=== PATIENT | female | born 1955 | race Caucasian/White ===

== ENCOUNTER 2022-02-19 00:31 | Day surgery (SDC) | payer MEDICARE, SELFPAY ==
[2022-02-05 12:24] VITALS: BMI 37.0
[2022-02-19 11:11] VITALS: BP 160/69; PULSE 95; RESP 18; TEMP 36.4; O2SAT 99
[2022-02-19] MEDS: LACTATED RINGERS 1,000 ML 150 ML IV CONT (11:22)
--- NOTE | 2022-02-19 11:28 | P.PNAN_ITS ---
Anes - Initial Pre Proc Eval Procedure: Operation Date: 02/19/22 12:30 Proposed Procedures p Screening Colonoscopy - Lloyd Zarate MD Date/Time: 02/19/22 11:28 Surgeon: Lloyd Zarate MD Pre Op Diagnosis: neoplasm screening Patient Data Age: 66 Gender: F Height: 1.75 m Weight: 113.6 kg Last Vital Signs Temp 97.6 F 02/19/22 11:11 Pulse 95 02/19/22 11:11 Resp 18 02/19/22 11:11 BP 160/69 H 02/19/22 11:11 Pulse Ox 99 02/19/22 11:11 O2 Del Method Room Air 02/19/22 11:11 Allergies Allergy/AdvReac Type Severity Reaction Status Date / Time nitrofurantoin Allergy Unknown Other Verified 02/19/22 11:15 DANICRAN Allergy Severe Swelling Uncoded 02/19/22 11:15 Home Medications Medication Instructions Recorded Confirmed Type ascorbic acid (vitamin C) 500 mg 500 mg PO DAILY 02/05/22 02/19/22 History tablet glucosamine sulf dipot 1 cap PO DAILY 02/05/22 02/19/22 History chlr,msm,chond 550 mg-C 30 mg-roxie 1 mg capsule (Glucosamine Chondroitin) levothyroxine 125 mcg tablet 125 mcg PO DAILY 02/05/22 02/19/22 History lisinopril 20 1 tablet PO DAILY 02/05/22 02/19/22 History mg-hydrochlorothiazide 12.5 mg tablet multivitamin with minerals-folic 1 tablet PO DAILY 02/05/22 02/19/22 History acid 0.4 mg tablet omeprazole 20 mg tablet,delayed 20 mg PO DAILY 02/05/22 02/19/22 History release vitamin E 400 unit tablet 400 unit PO DAILY daily 02/05/22 02/19/22 History Patient hx anesthesia problems: none Family hx anesthesia problems: none Results Review: All pre-operative results and documents have been reviewed as part of the pre- operative evaluation. [facility] Social History Social History Smoking status: Never smoker Alcohol intake: never Substance use type: does not use Living arrangements: with family Spiritual care concerns: No Anes - Eval Final PreProcedure Day of Procedure 02/19/22 11:28 Patient weight: obese Heart: regular rate and rhythm Lungs: clear to auscultation Airway: Mallampati scale class II Neurological: alert and oriented Last oral intake: >/= 8 hours ASA classification: III Emergent: no Anesthetic plan: proceed Anesthesia type and monitoring: general GIVS and standard monitoring Results Review: All pre-operative results and documents have been reviewed as part of the pre- operative evaluation. Informed Consent: The patient's anesthetic plan and its attendant risks and benefits were discussed with the patient/family/POA. Questions were solicited and answers provided to the satisfaction of the patient/family/POA.
--- NOTE | 2022-02-19 11:33 | PM.HPGS ---
History of Present Illness History of Present Illness Consent: Risks, benefits, and alternatives have been discussed and questions answered. Patient agrees to proceed with procedure. Chief complaint: neoplasm screening Narrative: Jovana Merchant is a 66 year old female Presents for neoplasia screening colonoscopy. Patient's current weight appetite and bowel movements are normal. Patient denies abdominal pain. She has had no bleeding. Family history noncontributory. Patient's last colonoscopy 2009 was unremarkable. Review of Systems Review of Systems: Review of systems noncontributory. [facility] Social History Social History Smoking status: Never smoker Alcohol intake: never Substance use type: does not use Living arrangements: with family Spiritual care concerns: No Meds Home Medications and Allergies Home Medications Medication Instructions Recorded Confirmed Type ascorbic acid (vitamin C) 500 mg 500 mg PO DAILY 02/05/22 02/19/22 History tablet glucosamine sulf dipot 1 cap PO DAILY 02/05/22 02/19/22 History chlr,msm,chond 550 mg-C 30 mg-roxie 1 mg capsule (Glucosamine Chondroitin) levothyroxine 125 mcg tablet 125 mcg PO DAILY 02/05/22 02/19/22 History lisinopril 20 1 tablet PO DAILY 02/05/22 02/19/22 History mg-hydrochlorothiazide 12.5 mg tablet multivitamin with minerals-folic 1 tablet PO DAILY 02/05/22 02/19/22 History acid 0.4 mg tablet omeprazole 20 mg tablet,delayed 20 mg PO DAILY 02/05/22 02/19/22 History release vitamin E 400 unit tablet 400 unit PO DAILY daily 02/05/22 02/19/22 History Allergies Allergy/AdvReac Type Severity Reaction Status Date / Time nitrofurantoin Allergy Unknown Other Verified 02/19/22 11:15 DANICRAN Allergy Severe Swelling Uncoded 02/19/22 11:15 Vital Signs Vital Signs - 24 hr 02/19/22 11:11 Temperature 97.6 F Pulse Rate 95 Respiratory Rate 18 Blood Pressure 160/69 H Pulse Oximetry 99 Oxygen Delivery Room Air Exam Narrative: Physical exam reveals patient be alert. Vital signs stable. HEENT exam is unremarkable. Patient is anicteric. Lungs are clear to auscultation and percussion. Heart is without murmur or extra sounds. Abdomen bowel sounds present soft nontender with no organomegaly. Digital external rectal exam is normal. Assessment and Plan Assessment and plan (1) Encounter for screening colonoscopy: Code(s): Z12.11 - Encounter for screening for malignant neoplasm of colon Status: Acute Assessment and Plan: Patient presents for screening colonoscopy. She appears to be at average risk for colon polyps.
[2022-02-19 13:00] VITALS: BP 155/85; PULSE 90; RESP 22; O2SAT 100
[2022-02-19 13:10] VITALS: BP 172/90; PULSE 94; RESP 20; O2SAT 97
[2022-02-19 13:20] VITALS: BP 138/73; PULSE 85; RESP 18; O2SAT 97
== END 2022-02-19 13:29 | disposition home or self-care (01) ==
PROVIDERS: Visit Provider Internal Medicine Gastroenterology
PROC: 0DJD8ZZ Inspection of Lower Intestinal Tract, Via Natural or Artificial Opening Endoscopic (ICD-10-PCS; CPT 45378; principal; 2022-02-19 12:30)
DX: Z12.11 Encounter for screening for malignant neoplasm of colon (principal); K64.8 Other hemorrhoids; E66.9 Obesity, unspecified; Z68.37 Body mass index [BMI] 37.0-37.9, adult
CPT/HCPCS: G0121; J2704; J7120

== ENCOUNTER 2023-08-17 15:35 | Inpatient (IN) | payer MEDICARE, SELFPAY ==
--- NOTE | ~2023-08-17 | US_ITS ---
EXAMINATION: US right upper quadrant DATE: 08/18/2023 11:05 INDICATION: Right upper quadrant abdominal pain. TECHNIQUE: Multiple grayscale and Doppler ultrasound images of the abdomen were obtained. COMPARISON: CT abdomen and pelvis 08/17/2023 FINDINGS: The pancreas is hypoechoic, consistent with acute pancreatitis. There is diffuse hepatic st eatosis. There is normal flow in main portal vein. The gallbladder is normal in size. No gallstones o r gallbladder wall thickening. There was no sonographic Burgos's sign. The common duct is normal and measures 3 mm. There is a small volume of perihepatic ascites. IMPRESSION: 1. Acute pancreatitis. 2. Small volume of perihepatic ascites. 3. Diffuse hepatic steatosis. Reviewed, dictated and finalized at location A.
--- NOTE | ~2023-08-17 | MR_ITS ---
EXAMINATION: MR MRCP wo/w con/w 3D wo ind DATE: 08/18/2023 12:12 INDICATION: Abdominal pain. TECHNIQUE: Magnetic resonance imaging (MRI) of the abdomen was performed without intravenous contrast . Sequences included coronal T2-weighted FS FSE, coronal T2-weighted FSE, axial T1-weighted LAVA, cor onal FS FIESTA, axial dual-echo T1-weighted SPGR, coronal lava-FLEX, sagittal T2-weighted FSE, axial T2-weighted FSE, and axial DWI. Thick-slab T2-weighted FSE images were obtained for magnetic resonanc e cholangiopancreatography (MRCP). Maximum intensity projection 3-D reconstructions of the volumetric data were created by the technologist. Postcontrast sequences included coronal LAVA-flex and time co urse of axial T1-weighted LAVA. COMPARISON: CT abdomen and pelvis 08/17/2023 FINDINGS: ABDOMEN MRI: There is diffuse hepatic steatosis. The gallbladder and spleen are normal. There is hypo enhancement in the body of the pancreas. There is widespread fat stranding in the peritoneum and retr operitoneum centered at the pancreas. There is a small volume of ascites. The adrenal glands and left kidney are normal. There are cysts in right kidney measuring up to 10 mm. There are no dilated loops of bowel. ABDOMEN MRCP: The common duct is normal and measures 4 mm. No choledocholithiasis. IMPRESSION: 1. Acute necrotic pancreatitis. 2. Small volume of ascites. 3. Diffuse hepatic steatosis. Reviewed, dictated and finalized at location A.
--- NOTE | ~2023-08-17 | XR_ITS ---
EXAMINATION: XR chest 1V portable Exam Date/Time: 08/17/2023 18:45 CDT HISTORY: abd pain WITH NAUSEA AND VOMITTING X 1 DAY Comparison: None. RESULT: Lines, tubes, and devices: None. Lungs and pleura: Clear. Cardiomediastinal silhouette: Unremarkable. Other: No acute osseous or upper abdominal finding. IMPRESSION: No acute cardiopulmonary process. Reviewed, dictated and finalized at location K.
--- NOTE | ~2023-08-17 | CT_ITS ---
EXAMINATION: CT abdomen pelvis w con DATE: 08/17/2023 17:50 INDICATION: abdominal pain TECHNIQUE: Computed tomography (CT) of the abdomen and pelvis was performed with 100 mL Omnipaque-350 intravenous contrast. Automated exposure control and iterative reconstruction technique were employe d. The dose-length product was 1534.65 mGy-cm. COMPARISON: None. FINDINGS: Lower thorax: Unremarkable Liver: Normal. Biliary/Gallbladder: Gallbladder is normal. No bile duct dilation. Pancreas: Moderate peripancreatic stranding and fluid. Fluid extends into the kushal hepatis and mid a bdominal mesentery. Ill-defined area of hypoenhancement in the pancreatic body. Spleen: Normal. Adrenals:No mass. Kidneys: No suspicious mass, obstructing stone, or hydronephrosis. Multiple simple right renal cysts. GI tract: Mild distal esophageal and gastric wall edema. Inflammatory fluid surrounding the duodenal C-loop, presumably reactive. No small or large bowel dilation. Normal appendix. Diverticulosis withou t diverticulitis. Mesentery/Peritoneum: No ascites, mass, or free air. Retroperitoneum: No mass. Atherosclerotic abdominal aortic and/or arterial calcifications. Pelvis: Normal urinary bladder. Absent uterus.. Soft Tissues: Soft tissues and body wall unremarkable. Bones: No acute osseous finding. IMPRESSION: Acute pancreatitis. Focal hypoenhancement in the pancreatic body may represent edema or necrosis, att ention on follow-up exams. No organized peripancreatic fluid collection. Reviewed, dictated and finalized at location K. IMPRESSION: Acute pancreatitis. Focal hypoenhancement in the pancreatic body may represent edema or necrosis, attention on follow-up exams. No organized peripancreatic fl uid collection.
[2023-08-17 16:09] VITALS: BP 154/75; PULSE 68; RESP 18; TEMP 36.6; O2SAT 100
--- NOTE | 2023-08-17 17:03 | ED.GENADULT ---
HPI - General Adult General Chief complaint: Abdominal Pain Stated complaint: UPPER ABD PAIN Time Seen by Provider: 08/17/23 17:03 Focused HPI: Jovana Merchant is a 67 y/o female who presents with reports of having sudden onset of left upper abdominal pain that started today at 1430, she has been vomiting and dry heaving ever since. She denies any changes with bowel movements / urine GENERAL: no acute distress. HEAD: Normocephalic, atraumatic. CHEST: Clear to auscultation. ?No respiratory distress. HEART: Regular rate and rhythm.? NEURO: ?Alert and oriented x3. Patient screened in triage and initial orders placed.? ?Additional care and disposition to be based upon?diagnostic testing and treatment. Related Data Home Medications Medication Instructions Recorded Confirmed levothyroxine 125 mcg tablet 125 mcg PO DAILY 02/05/22 08/17/23 lisinopril 20 1 tablet PO DAILY 02/05/22 08/17/23 mg-hydrochlorothiazide 12.5 mg tablet cholecalciferol (vitamin D3) 25 1,000 unit PO DAILY 08/17/23 08/17/23 mcg (1,000 unit) capsule Allergies Allergy/AdvReac Type Severity Reaction Status Date / Time DANICRAN Allergy Severe Swelling Uncoded 02/19/22 11:15 [facility] Past Medical History Medical History (Updated 08/18/23 @ 09:32 by Luann Pritchett APRN) Essential hypertension Hypothyroidism Internal hemorrhoids Morbid obesity Obstructive sleep apnea Intolerant to CPAP Varicose vein of leg Vitamin D deficiency Surgical History Surgical History (Updated 08/18/23 @ 00:50 by Tawnya Arroyo DO) History of colonoscopy Noting complicated internal hemorrhoids. 02/2022 History of hysterectomy (~1998) History of primary section (~1979) History of tonsillectomy (~1970) History of vein stripping (~2006) Left leg Status post cataract extraction of both eyes with insertion of intraocular lens (~2014) Family History Family History (Updated 08/18/23 @ 00:52 by Tawnya Arroyo DO) Mother Lung cancer, Onset Age: 55 Smoker Father Alcoholism Acute myocardial infarction, Onset Age: 62 Social History Social History (Updated 08/18/23 @ 00:53 by Tawnya Arroyo DO) Social History: She lives at home with her of 49 years. 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 She raised a daughter and a son. She is a lifelong nonsmoker and drinks absolutely no alcohol and does not use illicit substances. Code status: Full code Surrogate decision maker: Smoking status: Never smoker Alcohol intake: never Substance use: never Substance use type: does not use Do You Feel Safe in your Home?: Yes Lack of Transportation: No Lack of Food: Never True Current Housing: I Have Housing Concerned About Future Housing: No Difficulty Paying Gas/Electric Bills: No Difficulty Paying for Meds: No Currently Unemployed: No Education: High School Diploma/GED Difficulty w/ Childcare or Family Care: No Living arrangements: with family Spiritual care concerns: No Course Vital Signs Vital signs: Vital Signs Temperature 36.6 C 08/17/23 16:09 Pulse Rate 68 08/17/23 16:09 Respiratory Rate 18 08/17/23 16:09 Blood Pressure 154/75 H 08/17/23 16:09 Pulse Oximetry 100 08/17/23 16:09 Oxygen Delivery Room Air 08/17/23 16:09 Temperature 37.1 C 08/18/23 20:05 Pulse Rate 97 08/18/23 20:05 Respiratory Rate 16 08/18/23 20:05 Blood Pressure 139/61 08/18/23 20:05 Pulse Oximetry 93 08/18/23 20:05 Oxygen Delivery Room Air 08/18/23 20:00 Medical Decision Making Vital Signs Vital Signs: Vital Signs Temperature 36.6 C 08/17/23 16:09 Pulse Rate 68 08/17/23 16:09 Respiratory Rate 18 08/17/23 16:09 Blood Pressure 154/75 H 08/17/23 16:09 Pulse Oximetry 100 08/17/23 16:09 Oxygen Delivery Room Air 08/17/23 16:09 Temperature 37.1 C 08/18/23 20:05 Pulse Rate 97 08/18/23 20:05 Respiratory
[2023-08-17] MEDS: ONDANSETRON INJ 4 MG/2 ML VIAL IV PUSH ×3 (17:23→22:59)
[2023-08-17] MEDS: KETOROLAC 30 MG/ML VIAL (*BKC) IV PUSH (17:24)
[2023-08-17] MEDS: DICYCLOMINE HCL INJ 20 MG/2 ML VIAL IM (17:24)
[2023-08-17] MEDS: FAMOTIDINE 20 MG/2 ML VIAL IV PUSH (17:24)
[2023-08-17 17:48] LABS: Hematocrit 45.4 % (37.0-47.0); Hemoglobin 15.3 g/dL (12.0-15.0); Mean Corpuscular HGB Conc 33.7 g/dl (32-36); Mean Platelet Volume 11.1 fl (7.4-10.4); Platelet Count Result 217 k/mm3 (150-375); Red Blood Count 4.78 M/mm3 (4.2-5.4); Red Cell Distribution Width 15.2 % (11.5-14.5); White Blood Count 30.2 K/mm3 (4.5-10.0)
[2023-08-17 17:57] LABS: Lactic Acid Reflex 3.2 mmol/L (0.7-2.0)
[2023-08-17] MEDS: LACTATED RINGERS 1,000 ML 999 ML IV CONT ×4 (17:58→21:55)
[2023-08-17 17:59] LABS: Partial Thromboplastin Time 21.4 Seconds (22.3-36.8); Prothrombin Time 13.8 Seconds (11.1-14.7)
[2023-08-17 18:09] LABS: Troponin I < 0.012 ng/mL (0.000-0.034)
[2023-08-17 18:11] LABS: Band Neutrophils Percent 5 % (0-6); Lymphocytes Absolute Manual 3.32 K/mm3 (1.1-4.5); Lymphocytes Percent Manual 11 % (18-44); Monocytes Absolute Manual 1.81 K/mm3 (0.1-0.90); Monocytes Percent Manual 6 % (3-9); Neutrophils Absolute Manual 25.06 K/mm3 (1.7-7.2); Neutrophils Percent Manual 78 % (46-73); Platelet Estimate Adequate (Adequate); Total Cells Counted 100
[2023-08-17 18:12] LABS: Anisocytosis 1+; Ovalocytes 1+; Schistocytes None Seen
--- NOTE | 2023-08-17 18:24 | ED.ABDPAIN ---
HPI - Abdominal Pain General Chief Complaint: Abdominal Pain Stated Complaint: UPPER ABD PAIN Time Seen by Provider: 08/17/23 17:03 History of Present Illness HPI narrative: 67-year-old female w/ a hx of HTN presents via EMS with her daughter and at bedside for evaluation for sudden onset abdominal pain that started around 2:30 p.m. this afternoon. 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 She is pointing to her upper quadrants when I ask her where her pain is. She denies known fever, chest pain. Endorses some shortness of breath which she believes is secondary to retching. She denies dysuria, hematuria, diarrhea. Prior abdominal surgeries include a Caesarean section and partial hysterectomy. Last bowel movement was this morning and normal. No hematemesis or coffee-ground emesis. States she does not use drugs or alcohol. Denies use of Mounjaro and Ozempic. Related Data Home Medications Medication Instructions Recorded Confirmed levothyroxine 125 mcg tablet 125 mcg PO DAILY 02/05/22 08/17/23 lisinopril 20 1 tablet PO DAILY 02/05/22 08/17/23 mg-hydrochlorothiazide 12.5 mg tablet cholecalciferol (vitamin D3) 25 1,000 unit PO DAILY 08/17/23 08/17/23 mcg (1,000 unit) capsule Allergies Allergy/AdvReac Type Severity Reaction Status Date / Time CEE Allergy Severe Swelling Uncoded 02/19/22 11:15 Review of Systems Review of Systems: CONSTITUTIONAL: Denies fever, chills, or sweats. EYES: Denies visual changes, redness, or discharge. ENT: Denies rhinorrhea, congestion, sore throat, or otalgia. CARDIOVASCULAR: Denies chest pain, palpitations, or edema. RESPIRATORY: See HPI GASTROINTESTINAL: See HPI GENITOURINARY: Denies dysuria or hematuria. SKIN: Denies rash or itching. MUSCULOSKELETAL: Denies back pain, joint pain, or myalgia. NEUROLOGIC: Denies headache, numbness, or weakness. PSYCHIATRIC: Denies anxiety or depression. [facility] Family History Family History (Updated 08/17/23 @ 23:07 by Elena Marie RN) Mother Lung cancer Father Cardiac arrest Alcoholism Social History Social History (Reviewed 08/17/23 @ 18:29 by MEGAN Lynn Smoking status: Never smoker Alcohol intake: never Substance use: never Substance use type: does not use Do You Feel Safe in your Home?: Yes Lack of Transportation: No Lack of Food: Never True Current Housing: I Have Housing Concerned About Future Housing: No Difficulty Paying Gas/Electric Bills: No Difficulty Paying for Meds: No Currently Unemployed: No Education: High School Diploma/GED Difficulty w/ Childcare or Family Care: No Living arrangements: with family Spiritual care concerns: No Exam Narrative: GENERAL: Ill-appearing, resting on exam HEAD: Normocephalic, atraumatic. EYES: PERRLA and EOMI. ENT: Nares clear, no rhinorrhea or epistaxis. Mucous membranes moist. NECK: Supple. CHEST: Clear to auscultation. No respiratory distress. HEART: Regular rate and rhythm. No murmur heard. Normal peripheral pulses. ABDOMEN: Abdomen soft with quiet bowel sounds. Tenderness throughout the abdomen with associated guarding, specifically over the left and right upper quadrant. Positive Burgos sign. No rebound or rigidity. No CVA tenderness. EXTREMITIES: Normal range of motion. No edema. SKIN: Warm, dry, no rash. NEURO: No focal deficits. Alert and oriented x3 Course Vital Signs Vital signs: Vital Signs Temperature 98 F 08/17/23 16:09 Pulse Rate 68 08/17/23 16:09 Respiratory Rate 18 08/17/23 16:09 Blood Pressure 154/75 H 08/17/23 16:09 Pulse Oximetry 100 08/17/23 16:09 Oxygen Delivery Room Air 08/17/23 16:09 Temperature 98.1 F 08/17/23 23:17 Pulse Rate 76 08/18/23 00:00 Respiratory Rate 20 08/17/23 23:17 Blood Pressure 163/65 H 08/17/23 23:17 Pulse Oximetry 93
[2023-08-17 18:27] LABS: Alanine Aminotransferase 34 U/L (6-35); Albumin Level 4.9 g/dL (3.5-5.1); Alkaline Phosphatase 92 U/L (38-126); Anion Gap 14 mmol/L (4-12); Aspartate Amino Transferase 44 U/L (14-36); Bilirubin,Total 0.6 mg/dL (0.2-1.3); Blood Urea Nitrogen 35 mg/dL (7-17); Carbon Dioxide 19 mmol/L (22-30); Chloride 106 mmol/L (98-107); Estimated CRCL calculation 71 ml/min; Estimated Glomerular Filt Rate 55; Glucose 225 mg/dL (65-110); Sodium 139 mmol/L (137-145)
[2023-08-17] MEDS: MORPHINE SULFATE (*CRX) 4 MG/ML INJ IV PUSH (18:27)
[2023-08-17 18:30] VITALS: BP 131/65; PULSE 69; RESP 13; O2SAT 98
[2023-08-17 18:59] LABS: CRP < 0.5 mg/dL (<1.0)
[2023-08-17 19:09] LABS: Erythrocyte Sedimentation Rate 11 mm/hr (0-20)
--- NOTE | 2023-08-17 20:07 | PC.NURSE ---
forth person attempting to get second set of blood cultures at this time, will start antibiotic treatment once second set of blood cultures are sent to the lab.
[2023-08-17] MEDS: HYDROmorphone HCL INJ (*CRX) 1 MG/ML SYR 0.5 MG IV PUSH (20:31)
[2023-08-17] MEDS: PROMETHAZINE HCL 25 MG/ML AMPUL IM (20:42)
[2023-08-17 20:45] LABS: Reflex Lactic Acid Yes or No Add Lactic
[2023-08-17] MEDS: HYDROmorphone HCL INJ (*CRX) 1 MG/ML SYR IV PUSH ×2 (21:41→23:51)
[2023-08-17] MEDS: CEFEPIME 2 GM/NS 50 ML 2 GM/50 ML BAG IVPB (21:49)
[2023-08-17] MEDS: metroNIDAZOLE 500 MG/ISO 100ML 500 MG/100 ML BAG 100 MG IVPB (22:06)
[2023-08-17 22:24] LABS: Lactic Acid 3.1 mmol/L (0.7-2.0)
[2023-08-17 22:25] LABS: Triglycerides 92 mg/dL (<150)
--- NOTE | 2023-08-17 23:03 | ADMGEN ---
This patient, Jovana Merchant, was admitted to Medical Room 349-01. Patient/family oriented to hospital policies and general routines including ID bracelet, bed and alarms, visiting hours, pain management, procedures, bathroom and other care routines, personal items, smoking policy, room service/diet, and visiting hours. Information on how to activate the Rapid Response Team has been discussed. Patient/Family are encouraged to report perceived risks to care and to ask questions if they do not understand what they are told or what they should do.
[2023-08-17 23:17] VITALS: BP 163/65; PULSE 69; RESP 20; TEMP 36.7; O2SAT 93
[2023-08-17 23:22] VITALS: PULSE 80
[2023-08-17 23:28] VITALS: BMI 41.2
[2023-08-17] MEDS: LACTATED RINGERS 1,000 ML 200 ML IV CONT (23:32)
[2023-08-18] VITALS (9 sets, daily range): BP systolic 139–166; BP diastolic 42–70; PULSE 76–118; RESP 16–18; TEMP 36.6–37.1; O2SAT 92–93
--- NOTE | 2023-08-18 00:29 | PM.IMHP ---
H&P: HPI History of Present Illness Date/Time: 08/17/23 21:40 Chief Complaint: Abdominal pain Narrative: 67-year-old female with past medical history of morbid obesity, untreated obstructive sleep apnea, essential hypertension, hypothyroidism and vitamin-D deficiency who presented to the ER due to sudden severe onset of epigastric abdominal pain at 14:30. The patient reports that she had a pork steak about 2-1/2 hours prior to onset of symptoms. Then symptoms started in the epigastric area and radiated around the left side of the abdomen into the back. The symptoms are associated with severe nausea. Pain is 10/10 in intensity. Pain was so intense that they called EMS and patient arrived to the ER around 17:00. The patient is screaming quite loudly when I went to evaluate her in the ER. She has been having significant dry heaves. She denies any chest pain. She only feels short of breath when she is retching. Her last bowel movement was this morning. She does not have a history of alcohol use. She denies any recent changes in medications. She does reported distant history approximately 10 years ago of gallbladder sludge. She has not had a cholecystectomy. She has had a hysterectomy without oophorectomy and 1 . Patient's pain was on relieved in the ER despite Toradol 30 mg and morphine 4 mg. She reports minimal improvement in pain with Dilaudid. The patient's daughter noted some swelling of the patient's ankles after patient was noted to have some bradycardia with vomiting in the ER but heart rate for the most part state above 40. Blood pressures in the ER varied between the 130 systolic and have to 200 systolic when she was in distress. But blood pressures did improve with treatment of pain and nausea. She had been in the ER but patient does not usually have lower extremity edema. She denies any calf pain or tenderness. Patient denies any known history of cardiac disease and troponin was negative in the ER. EKG was obtained in the ER but was not available for my review on the chart but telemetry was personally reviewed. CT of the abdomen pelvis in the ER demonstrated acute pancreatitis with focal enhancement in the pancreatic body may represent edema or necrosis without organized fluid collection and lipase correlated with acute pancreatitis at 29,000. Triglycerides were normal. With the patient's permission the patient's daughter provided the majority of the HPI. The patient also had a detailed binder with her entire medical history of bedside. Some information obtained from external medical records and ER provider.. Review of Systems Review of Systems: 12 systems were reviewed with pertinent positives and negatives per HPI. Except as documented in the HPI, all other systems were reviewed and are negative. [facility] Past Medical History Medical History (Updated 08/18/23 @ 01:03 by Tawnya Arroyo DO) Essential hypertension Hypothyroidism Internal hemorrhoids Morbid obesity Obstructive sleep apnea Intolerant to CPAP Varicose vein of leg Vitamin D deficiency Surgical History Surgical History (Updated 08/18/23 @ 00:50 by Tawnya Arroyo DO) History of colonoscopy Noting complicated internal hemorrhoids. 02/2022 History of hysterectomy (~1998) History of primary section (~1979) History of tonsillectomy (~1970) History of vein stripping (~2006) Left leg Status post cataract extraction of both eyes with insertion of intraocular lens (~2014) Family History Family History (Updated 08/18/23 @ 00:52 by Tawnya Arroyo DO) Mother Lung cancer, Onset Age: 55 Smoker Father Alcoholism Acute myocardial infarction, Onset Age: 62 Social History Social History (Updated 08/18/23 @ 00:53 by Tawnya Arroyo DO) Social History: She lives at home with her of 49 years. 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 She is a lifelong
[2023-08-18] MEDS: KETOROLAC 30 MG/ML VIAL (*BKC) IV PUSH ×4 (00:57→17:47)
[2023-08-18] MEDS: hydrALAZINE HCL 20 MG/ML VIAL 10 MG IV PUSH (01:07)
[2023-08-18] MEDS: PROMETHAZINE HCL 25 MG/ML AMPUL IM ×2 (01:07→05:33)
[2023-08-18 01:48] LABS: Add Urine Microscopic? YES; Appearance Urine Clear (Clear); Bacteria Urine 4+ /hpf; Bilirubin Urine Negative (Negative); Blood Urine Negative (Negative); Color Urine Yellow (Yellow); Glucose Urine UA Negative (Negative); Ketones Urine Trace mg/dL (Negative); Leukocyte Esterase Ur Negative LEU/UL (Negative); Need Manual Microscopic Reviewed; Nitrate Urine Positive (Negative); Non Pathogenic Casts 0-2; Protein Urine 1+ mg/dL (Negative); RBC Urine 0-2 /hpf (0-2); Specific Grav Ur 1.069 (1.001-1.035); Squamous Epithelial Cell Urine None Seen /hpf (Few); Urobilinogen Urine 0.2 mg/dL (<2.0); pH Urine 5.5 (5.0-9.0)
[2023-08-18] MEDS: HYDROmorphone HCL INJ (*CRX) 1 MG/ML SYR IV PUSH ×4 (02:32→20:10)
[2023-08-18] MEDS: LACTATED RINGERS 1,000 ML 200 ML IV CONT (04:28)
[2023-08-18] MEDS: CEFEPIME 2 GM/NS 50 ML 2 GM/50 ML BAG IVPB ×3 (04:28→21:00)
[2023-08-18] MEDS: ONDANSETRON INJ 4 MG/2 ML VIAL IV PUSH ×2 (04:32→09:52)
[2023-08-18] MEDS: LEVOTHYROXINE SODIUM INJ 100 MCG/5 ML VIAL 62.5 MCG IV PUSH (05:32)
[2023-08-18 05:33] LABS: Basophils Absolute Auto 0.1 K/mm3 (0.0-0.1); Basophils Percent Auto 0.3 % (0.2-1.2); Eosinophils Percent Auto 0.1 % (0-4.4); Hematocrit 43.8 % (37.0-47.0); Hemoglobin 14.2 g/dL (12.0-15.0); Immature Granulocyte Percent A 0.6 % (0-0.5); Lymphocytes Percent Auto 6.6 % (18.3-44.2); Mean Corpuscular HGB Conc 32.4 g/dl (32-36); Mean Corpuscular Hemoglobin 32.2 pg (26-34); Mean Corpuscular Volume 99.3 fl (80-100); Mean Platelet Volume 11.2 fl (7.4-10.4); Monocytes Absolute Auto 1.4 K/mm3 (0.1-0.6); Monocytes Percent Auto 7.8 % (2.6-8.5); Neutrophils Absolute Auto 15.4 K/mm3 (1.3-6.7); Neutrophils Percent Auto 84.6 % (45.5-73.1); Platelet Count Result 154 k/mm3 (150-375); Red Blood Count 4.41 M/mm3 (4.2-5.4); Red Cell Distribution Width 15.7 % (11.5-14.5); White Blood Count 18.2 K/mm3 (4.5-10.0)
[2023-08-18] MEDS: metroNIDAZOLE 500 MG/ISO 100ML 500 MG/100 ML BAG 100 MG IVPB ×3 (05:33→21:48)
[2023-08-18 05:47] LABS: Alanine Aminotransferase 28 U/L (6-35); Albumin Level 3.9 g/dL (3.5-5.1); Alkaline Phosphatase 69 U/L (38-126); Anion Gap 10 mmol/L (4-12); Aspartate Amino Transferase 45 U/L (14-36); Bilirubin,Total 0.8 mg/dL (0.2-1.3); Blood Urea Nitrogen 35 mg/dL (7-17); Calcium 8.5 mg/dL (8.4-10.2); Carbon Dioxide 18 mmol/L (22-30); Chloride 109 mmol/L (98-107); Estimated CRCL calculation 81 ml/min; Estimated Glomerular Filt Rate > 60; Glucose 237 mg/dL (65-110); Sodium 137 mmol/L (137-145)
[2023-08-18 05:49] LABS: Lactic Acid Reflex 4.2 mmol/L (0.7-2.0)
[2023-08-18 06:31] LABS: Lipase 9357 U/L (23-300)
[2023-08-18] MEDS: LACTATED RINGERS 1,000 ML 999 ML IV CONT (06:31)
[2023-08-18 07:08] LABS: Hemoglobin A1C 6.9 % (<5.7)
[2023-08-18] MEDS: PANTOPRAZOLE SODIUM IV 40 MG VIAL IV PUSH (08:35)
--- NOTE | 2023-08-18 08:56 | P.CONGI_ITS ---
I, Edgar Meade MD, have provided a substantive portion of the care of this patient and discussed the patient with my Nurse Practitioner. I have reviewed any new relevant radiographic and laboratory results including medications. I agree with her documentation as noted below.?I personally performed the medical decision making and much of the history and exam for this encounter. briefly here with acute onset of severe upper abdominal pain and nausea, she is diagnosed with necrotizing pancreatitis (MRCP reviewed), normal GB. Only mild elevated ast, normal bilirubin. She denies previous history of pancreatitis, no alcohol use, TG level normal. She says that about 16 yo diagnosed with sludge in GB for which she saw a surgeon but otherwise never had issues with GB. La ctic acid 4 but coming back down, also leukocytosis and started on abx, pending cultures. She is feeling slightly better today. NPO, pain meds, fluids and will ask surgery to evaluate however imaging of gallbladder unremarkable at this time. Assessment and Plan Assessment and plan (1) Acute pancreatitis: Qualifiers: Acute pancreatitis complication: unspecified Pancreatitis type: unspecified pancreatitis type Qualified Code(s): K85.90 - Acute pancreatitis without necrosis or infection, unspecified Code(s): K85.90 - Acute pancreatitis without necrosis or infection, unspecified Status: Acute Assessment and Plan: -acute pancreatitis documented on CT of the abdomen and pelvis with IV contrast along with elevated lipase of 29,000. On CT notes a focal enhancement in the pancreatic body which may represent edema or necrosis without an organized fluid collection. With her lactic acidosis and leukocytosis, concern for possible necrosis and infection. Etiology of pancreatitis could be biliary. -Calcium and Triglycerides are normal -No alcohol use or hx of chronic alcohol abuse -abdominal ultrasound ordered to assess for biliary sludge and choledocholithiasis as etiology -recommended MRCP to further assess the abnormal enhancement in the pancreatic body to assess for necrosis. -Continue antibiotics at this time due to concern for infection -Continue IV hydration -keep NPO -Close monitoring of VSS, urine output, electrolytes and glucose -Supportive tx with pain mediation, consider scheduled opiates instead of PRN and if fails to improve pain, recommend pain pump. -Monitor for s/s of complications -Further recs to follow US and MRCP (2) Lactic acidosis: Code(s): E87.20 - Acidosis, unspecified Status: Acute Assessment and Plan: -Has trending upwards 3-4 this AM -blood cultures pending -continue antibiotics at this time (3) Elevated transaminase level: Code(s): R74.01 - Elevation of levels of liver transaminase levels Status: Acute Assessment and Plan: AST mildly elevated with normal T bili, ALT and alk phos. She does have history of fatty liver. Monitor at this time. (4) Hyperglycemia: Code(s): R73.9 - Hyperglycemia, unspecified Status: Acute Assessment and Plan: -Has elevated glucose, hgb A1c 6.9 -This should be treated as if not can increase risks of secondary pancreatic infections. (5) Hypothyroidism: Qualifiers: Hypothyroidism type: unspecified Qualified Code(s): E03.9 - Hypothyroidism, unspecified Code(s): E03.9 - Hypothyroidism, unspecified Status: Acute (6) Essential hypertension: Code(s): I10 - Essential (primary) hypertension Status: Acute (7) Sleep apnea: Code(s): G47.30 - Sleep apnea, unspecified Statu
--- NOTE | 2023-08-18 08:56 | WPDGICN ---
Assessment and Plan Assessment and plan (1) Acute pancreatitis: Qualifiers: Acute pancreatitis complication: unspecified Pancreatitis type: unspecified pancreatitis type Qualified Code(s): K85.90 - Acute pancreatitis without necrosis or infection, unspecified Code(s): K85.90 - Acute pancreatitis without necrosis or infection, unspecified Status: Acute Assessment and Plan: -acute pancreatitis documented on CT of the abdomen and pelvis with IV contrast along with elevated lipase of 29,000. On CT notes a focal enhancement in the pancreatic body which may represent edema or necrosis without an organized fluid collection. With her lactic acidosis and leukocytosis, concern for possible necrosis and infection. Etiology of pancreatitis could be biliary. -Calcium and Triglycerides are normal -No alcohol use or hx of chronic alcohol abuse -abdominal ultrasound ordered to assess for biliary sludge and choledocholithiasis as etiology -recommended MRCP to further assess the abnormal enhancement in the pancreatic body to assess for necrosis. -Continue antibiotics at this time due to concern for infection -Continue IV hydration -keep NPO -Close monitoring of VSS, urine output, electrolytes and glucose -Supportive tx with pain mediation, consider scheduled opiates instead of PRN and if fails to improve pain, recommend pain pump. -Monitor for s/s of complications -Further recs to follow US and MRCP (2) Lactic acidosis: Code(s): E87.20 - Acidosis, unspecified Status: Acute Assessment and Plan: -Has trending upwards 3-4 this AM -blood cultures pending -continue antibiotics at this time (3) Elevated transaminase level: Code(s): R74.01 - Elevation of levels of liver transaminase levels Status: Acute Assessment and Plan: AST mildly elevated with normal T bili, ALT and alk phos. She does have history of fatty liver. Monitor at this time. (4) Hyperglycemia: Code(s): R73.9 - Hyperglycemia, unspecified Status: Acute Assessment and Plan: -Has elevated glucose, hgb A1c 6.9 -This should be treated as if not can increase risks of secondary pancreatic infections. (5) Hypothyroidism: Qualifiers: Hypothyroidism type: unspecified Qualified Code(s): E03.9 - Hypothyroidism, unspecified Code(s): E03.9 - Hypothyroidism, unspecified Status: Acute (6) Essential hypertension: Code(s): I10 - Essential (primary) hypertension Status: Acute (7) Sleep apnea: Code(s): G47.30 - Sleep apnea, unspecified Status: Acute (8) Colon cancer screening: Code(s): Z12.11 - Encounter for screening for malignant neoplasm of colon Status: Acute Assessment and Plan: Up to date on colonoscopy in 2021 GI Consult Note Consult date/time: 08/18/23 08:20 Reason for consult: acute pancreatitis HPI: Jovana Merchant is a 67 year old female asked to be seen at the request of the hospitalist for acute pancreatitis. Past medical history of morbid obesity, obstructive sleep apnea, hypertension, hypothyroidism and vitamin-D deficiency. Surgical history including hysterectomy, , tonsillectomy and bilateral cataract extraction. Reports remote history of gallbladder sludge, never had a cholecystectomy. Never has had acute pancreatitis in the past. Presented to [facility] ER around 3;30 pm via ambulance as she states around 1430 yesterday while driving in the car she had rapid onset of nausea with extreme epigastric abdominal pain and denies radiation of this pain into the back or shoulders. She then had multiple episodes of vomiting with no relief of his abdominal pain. She does not drink any alcohol. Denies any NSAIDs. Denies any new medications. Prior to this episode she denied any right upper quadrant postprandial pain, epigastric pain, nausea, vomiting or excessive GERD. She was eating well and tolerating a regular diet prior t
[2023-08-18] MEDS: ACETAMINOPHEN 325 MG TABLET 650 MG PO (09:52)
[2023-08-18 13:38] LABS: Glucose Point of Care 233 mg/dl (65-105)
[2023-08-18] MEDS: LACTATED RINGERS 1,000 ML 250 ML IV CONT ×3 (13:50→21:48)
[2023-08-18 15:22] LABS: Hematocrit 43.2 % (37.0-47.0); Hemoglobin 14.1 g/dL (12.0-15.0); Mean Corpuscular HGB Conc 32.6 g/dl (32-36); Mean Corpuscular Hemoglobin 31.8 pg (26-34); Mean Corpuscular Volume 97.5 fl (80-100); Platelet Count Result 142 k/mm3 (150-375); Red Blood Count 4.43 M/mm3 (4.2-5.4); Red Cell Distribution Width 15.9 % (11.5-14.5); White Blood Count 23.9 K/mm3 (4.5-10.0)
--- NOTE | 2023-08-18 15:22 | P.PNCROSS_ITS ---
Event Note Event Note Event Note: Patient is alert and oriented x3, sitting in the chair. Family is at the [facility] e. Patient denies any fever, chills, nausea, vomiting, diarrhea, chest pain, or shortness of breath. Patient states her pain is well controlled with the IV pain medications. She reports mild to moderate abdominal pain and burping without nausea. Her blood sugars are elevated however this is likely due to her necrotizing pancreatitis that was found on MRCP today. GI consulted General surgery however General surgery recommends hepatobiliary services at a tertiary hospital. I spoke with Dr. Cedillo who agrees with consult and possible transfer to tertiary [facility]. Patient and family prefer [facility] for any transfer. Call placed to transfer board. I am awaiting phone call from hospitalist at [facility]. Imaging pushed over to [facility] for review. We will continue with IVF, IV antibiotics and pain control for now. General: In no acute distress, well nourished Head: atraumatic, no encephalopathy Eyes: EOMI, PERRLA, sclera clear ENT: moist mucous membranes, nasal passages clear Neck: supple, no JVD, no adenopathy, trachea midline Cardiac: Normal S1 and S2. RRR, No murmur, gallops or friction rubs, peripheral pulses intact. Respiratory: Lungs clear to auscultation, no adventitious lung sounds, currently on room air Gastrointestinal: soft, non-distended,epigastric tenderness to palpation, hypoactive bowel sounds. : voiding without difficulty. Extremities: moves all extremities well, no edema, good ROM, strength 5/5 Skin: clean, dry, intact. No wounds or lesions. Neuro: Alert and oriented x4, cranial nerves intact, no neuro deficits. Psych: normal mood, normal affect, interactive
[2023-08-18 15:33] LABS: Alanine Aminotransferase 27 U/L (6-35); Albumin Level 3.8 g/dL (3.5-5.1); Alkaline Phosphatase 62 U/L (38-126); Anion Gap 8 mmol/L (4-12); Aspartate Amino Transferase 62 U/L (14-36); Blood Urea Nitrogen 35 mg/dL (7-17); Calcium 8.3 mg/dL (8.4-10.2); Carbon Dioxide 22 mmol/L (22-30); Chloride 107 mmol/L (98-107); Cholesterol 118 mg/dL (0-200); Estimated CRCL calculation 73 ml/min; Estimated Glomerular Filt Rate > 60; Glucose 218 mg/dL (65-110); HDL Direct 45 mg/dL; Potassium 4.6 mmol/L (3.4-5.0); Sodium 137 mmol/L (137-145); Triglycerides 80 mg/dL (<150)
[2023-08-18 15:34] LABS: Lactic Acid Reflex 3.5 mmol/L (0.7-2.0)
[2023-08-18 15:44] LABS: LDL Cholesterol Direct 62 mg/dL
[2023-08-18 15:45] LABS: Band Neutrophils Percent 3 % (0-6); Lymphocytes Absolute Manual 0.23 K/mm3 (1.1-4.5); Monocytes Absolute Manual 0.71 K/mm3 (0.1-0.90); Monocytes Percent Manual 3 % (3-9); Neutrophils Absolute Manual 22.94 K/mm3 (1.7-7.2); Neutrophils Percent Manual 93 % (46-73); Platelet Estimate Slightly Decreased (Adequate); Schistocytes None Seen; Total Cells Counted 100
[2023-08-18 17:05] LABS: Glucose Point of Care 202 mg/dl (65-105)
[2023-08-18 18:20] LABS: Reflex Lactic Acid Yes or No Add Lactic
[2023-08-18 18:51] LABS: Lactic Acid 2.6 mmol/L (0.7-2.0)
--- NOTE | 2023-08-19 12:54 | PCCARD ---
EKG ORDERED 08/17/23 @ 17:05 DOES NOT APPEAR TO HAVE BEEN DONE. CANCELLING ORDER NOT DONE
--- NOTE | 2023-08-19 14:52 | PM.TDS ---
Transfer Discharge Sum: Prov Provider Date of admission: 08/17/23 21:16 Primary care physician: PHYSICIAN NOT ON STAFF Admitting clinician: Tawnya Arroyo DO Consults: 08/17/23 21:17 Consult to Physician Routine Comment: Consulting Provider: Edgar Meade yard caller/ group to consult: Dr. Meade Reason for consultation: Acute pancreatitis Has provider been notified: Yes 08/18/23 Consult to Physician Routine Comment: Spoke to Neida @ office @15:45pm () Consulting Provider: Harjinder Carroll yard caller/MD group to consult: surgery Reason for consultation: necrotizing pancreatitis Has provider been notified: Yes Attending physician on discharge: Ko Epsaña Discharging clinician: Marizol Hill Anticipated date of transfer: 08/18/23 Receiving physician/facility: [facility] , Dr. Bates was the accepting physician DS: Admitting Diagnosis Discharge Date 08/18/23 Admitting Diagnosis Acute pancreatitis Hypothyroidism Essential hypertension Lactic acidosis DS: Discharge Diagnosis Discharge Diagnosis (1) Acute pancreatitis: Qualifiers: Acute pancreatitis complication: unspecified Pancreatitis type: unspecified pancreatitis type Qualified Code(s): K85.90 - Acute pancreatitis without necrosis or infection, unspecified Code(s): K85.90 - Acute pancreatitis without necrosis or infection, unspecified Status: Acute (2) Hypothyroidism: Qualifiers: Hypothyroidism type: unspecified Qualified Code(s): E03.9 - Hypothyroidism, unspecified Code(s): E03.9 - Hypothyroidism, unspecified Status: Acute (3) Essential hypertension: Code(s): I10 - Essential (primary) hypertension Status: Acute (4) Lactic acidosis: Code(s): E87.20 - Acidosis, unspecified Status: Acute Transfer Discharge Sum: Med Medications Active and Home Medications: Home Medications levothyroxine 125 mcg tablet 125 mcg PO DAILY 02/05/22 [History Confirmed 08/17/23] lisinopril 20 mg-hydrochlorothiazide 12.5 mg tablet 1 tablet PO DAILY 02/05/22 [History Confirmed 08/17/23] cholecalciferol (vitamin D3) 25 mcg (1,000 unit) capsule 1,000 unit PO DAILY 08/17/23 [History Confirmed 08/17/23] Transfer Discharge Sum: Hosp Hospital Course Hospital course: Jovana J Merchant is a 67 year old female who presented to the hospital on 08/17/2023 with complaints abdominal pain. Workup in the hospital included CT of the abdomen and pelvis which shown acute pancreatitis, focal hyper enhancement in the pancreatic body representing edema or necrosis. She also had a chest x-ray which was negative. Ultrasound of her abdomen showed acute pancreatitis, small volume perihepatic ascites, diffuse hepatic steatosis. Abdomen MRI with MRCP showed acute necrotic pancreatitis, small volume of ascites, diffuse hepatic steatosis. Initial labs showed a white blood cell count of 30.2, bicarb 19, anion gap 14, EGFR 55, blood sugar was 225, hemoglobin A1c 6.9, initial lactate was 3.2> 3.1> 4.2> 3.5, AST 44, troponin was negative, C reactive protein was negative, lipase was 29,421. UA was also obtained which shown 1+ urine protein, trace ketone, positive nitrate, 11-20 urine wbc's, 4+ bacteria. Urine and blood cultures was obtained and pending. She was started on LR at 250 ml per hour and given cefepime and Flagyl. GI was consulted for further evaluation of her acute pancreatitis. On examination today patient is alert oriented x3, sitting in the chair. Her daughter is at the bedside. She states that she is feeling much better. Labs today showed WBC 23.9, Plt 142, Blood glucose 202-233, Lactic acid 2.6, AST 62, Lipase 9357. I spoke with GI services and they agree with transfer to tertiary hospital for continued monitoring and treatment plan. GI recommended the MRCP which showed a necrotic pancreatitis and consulted our general surgery team however they recommend that
== END 2023-08-18 22:43 | disposition short-term general hospital (02) | DRG 439 ==
LOC: ANHED 20:46 → ANH3MED 22:05
PROVIDERS: Nurse Practitioner Family; Admitting Provider Internal Medicine; Emergency Provider Physician Assistant; Visit Provider Nurse Practitioner Acute Care
DX: K85.81 Other acute pancreatitis with uninfected necrosis (principal); E87.21 Acute metabolic acidosis; Z68.41 Body mass index [BMI] 40.0-44.9, adult; K76.0 Fatty (change of) liver, not elsewhere classified; E03.9 Hypothyroidism, unspecified; I10 Essential (primary) hypertension; E66.01 Morbid (severe) obesity due to excess calories; R73.9 Hyperglycemia, unspecified; E55.9 Vitamin D deficiency, unspecified; G47.33 Obstructive sleep apnea (adult) (pediatric); Z96.1 Presence of intraocular lens; Z98.42 Cataract extraction status, left eye; Z98.41 Cataract extraction status, right eye
CPT/HCPCS: 36415; 71045; 74177; 74183; 76376; 76705; 80053; 80061; 81001; 82948; 83036; 83605; 83690; 84478; 84484; 85025; 85610; 85652; 85730; 86140; 87040; 87086; 96361; 96372; 96374; 96375; 96376; 99285; A9270; A9577; C9113; J0360; J0500; J0650; J0692; J1170; J1836; J1885; J2270; J2405; J2550; J7120; Q9967